=== PATIENT | male | born 1975 | race Hispanic/Latino ===

== ENCOUNTER 2024-05-26 06:48 | Day surgery (SDC) | payer OTHER, MEDICARE ==
[2024-05-22 12:20] VITALS: BP 94/64; PULSE 89; RESP 18; TEMP 97.5
[2024-05-22 12:23] LABS: BASOPHILS # (AUTO) 0.14 K/uL (0.00-0.20); BASOPHILS % (AUTO) 1.4 % (0.0-5.0); EOSINOPHILS # (AUTO) 0.44 K/uL (0.00-0.70); EOSINOPHILS % (AUTO) 4.3 % (0.0-8.0); HEMATOCRIT 44.2 % (42-54); IMMATURE GRANULOCYTE ABSOLUTE 0.04 K/uL (0-1); LYMPHOCYTES % (AUTO) 19.6 % (21.0-51.0); MEAN CORPUSCULAR HEMOGLOBIN 26.5 pg (27.0-33.0); MEAN CORPUSCULAR HGB CONC 31.4 g/dL (32.0-36.0); MEAN CORPUSCULAR VOLUME 84.4 fL (79-99); MONOCYTES # (AUTO) 0.6 K/uL (0.1-1.0); MONOCYTES % (AUTO) 6.1 % (3.0-13.0); NEUTROPHILS % (AUTO) 68.2 % (40.0-77.0); PLATELET COUNT (AUTO) 375 K/uL (130-400); RED BLOOD CELL COUNT(AUTO) 5.24 MIL/uL (4.50-6.20); RED CELL DISTRIBUTION WIDTH 16.2 % (11.0-15.5); WHITE BLOOD COUNT (AUTO) 10.3 K/uL (4.8-10.8)
[2024-05-22 12:33] LABS: POTASSIUM 3.9 mmol/L (3.5-5.1)
--- NOTE | 2024-05-22 12:42 | EKG ---
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
[~2024-05-26] VITALS: Ht 165.1 cm; Wt 96.3 kg
[2024-05-26 07:00] VITALS: BP 118/71; PULSE 96; RESP 18; TEMP 98.1
[2024-05-26] MEDS: LIDOCAINE HCL 2% VISCOUS 15 ML UDCUP PO ONE (07:30)
[2024-05-26] MEDS ORDERED: LIDOCAINE HCL 2% VISCOUS 15 ML UDCUP ONE (07:41)
[2024-05-26] MEDS ORDERED: INSU3INS3 SQ (07:55)
[2024-05-26] MEDS ORDERED: METOPROLOL (07:55)
[2024-05-26] MEDS ORDERED: LOSARTAN (07:55)
[2024-05-26] MEDS ORDERED: GABA (07:55)
[2024-05-26] MEDS ORDERED: FUROSEMIDE (07:55)
[2024-05-26] MEDS ORDERED: ASPI-1005 PO (07:55)
--- NOTE | 2024-05-26 09:30 | NUR ---
TIME OUT PERFORMED WITH DR. PINEDO MYSELF AND PT.
--- NOTE | 2024-05-26 09:43 | NUR ---
VIVIANA STARTED AT THIS TIME BARI VILLANUEVA.
--- NOTE | 2024-05-26 09:56 | NUR ---
BUBBLE STUDY PERFORMED VSS NAD
--- NOTE | 2024-05-26 09:57 | NUR ---
VIVIANA PERFORMED PT TOLERATED WELL NAD VSS.
[2024-05-26 09:58] VITALS: BP 110/67; PULSE 90; RESP 14; TEMP 97.4
--- NOTE | 2024-05-26 09:58 | NUR ---
PT AWAKE SLEEPING SPEAKING WITH STAFF BARI VILLANUEVA.
[2024-05-26 10:10] VITALS: BP 134/87; PULSE 81; RESP 14
[2024-05-26] MEDS: MIDAZOLAM HCL 1 MG/ML 2ML VIAL IVP ONE (10:10)
[2024-05-26] MEDS: 0.9%NACL 1000ML 1,000 ML IV SCH (10:10)
[2024-05-26] MEDS: FENTanyl CITRate PF 50 MCG/1 ML 2ML VIAL IVP ONE (10:12)
[2024-05-26 10:25] VITALS: BP 131/85; PULSE 83; RESP 14
[2024-05-26 10:40] VITALS: BP 100/63; PULSE 79; RESP 15
[2024-05-26 10:55] VITALS: BP 122/72; PULSE 79; RESP 15
--- NOTE | 2024-05-26 18:14 | HMCSR ---
APPROVED REPORT EXAM: Transesophageal echocardiogram with color flow Doppler. INDICATION ICD: I35.0 Non-rheumatic aortic valve stenosis PROCEDURE After obtaining informed consent, patient underwent transesophageal echo in the day pt department 15 mL 2% Viscous Lidocaine was given as a topical anesthetic prior to the administration of the consc ious sedation. Type of Sedation: Please refer to medication administration record. Sedation was administered by Please refer to medication administration record.. Sedation was achieved with Please refer to medication administration record. intravenously. Transesophageal probe was inserted and advanced into esophagus without difficulty by Terry Wray MD . Echo enhancement indication: R/O Septal defect. Echo enhancement agent administered: Agitated Saline. VIVIANA was performed and images were obtained, probe was removed without complications. Throughout the procedure, the blood pressure, pulse oximetry, cardiac rhythm, and rate were monitored . The patient tolerated the procedure without adverse effects. Recovery from conscious sedation was une ventful and vital signs were stable. Left Ventricle Left ventricular cavity size is normal. Spontaneous contrast seen left ventricle. There is global hyp okinesis of the left ventricle. LVEF is 20-25%. No left ventricle thrombus noted on this study. Right Ventricle The right ventricle is normal size. Right ventricular systolic function is mildly reduced. Atria The left atrium is mildly dilated.dilated.Spontaneous contrast seen in left atrium. No left atrial ap pendage thrombus noted. Negative bubble study. No evidence of PFO by agitated saline. The right atriu m size is normal. Aortic Valve Aortic valve is trileaflet. Left coronary cusp leaflet is thickened with limited excursion. Mild aort ic regurgitation is present. No aortic valvular vegetation. There is moderate to severe aortic stenos is may be underestimated due to low flow gradient. AoV area by planimetry is 1.0cm. AoV mean gradien t 20mmHg. Mitral Valve The mitral valve is mildly thickened. Mitral regurgitation is moderate No mitral valve vegetation. Th ere is no mitral valve stenosis. Tricuspid Valve The tricuspid valve is normal in structure and function. There is mild tricuspid valve regurgitation noted. No tricuspid valve vegetation. Pulmonic Valve The pulmonary valve is normal in structure and function. No pulmonic valve vegetation. Great Vessels The aortic root is normal in size. Pericardium No pericardial effusion. Conclusion Left ventricle is normal in size with a severely reduced systolic function. Estimated LVEF of 20-25% by visual estimate with globl hypokinesis. Right ventricle appears normal in size and systolic function. Left atrium appears mildly dilated. Normal Bubble study. No intracardiac thrombi or vegetations noted. Aortic valve non coronary cusp is hightly calcified with restricted leaflet opening and moderate aort ic stenosis (TEE 1cm and mean gradient 20mmHg). Consider low flow-low gradient aortic stenosis. Moderate mitral regurgitation. No pericardial effusion.
== END 2024-05-26 11:15 | disposition home or self-care (01) ==
LOC: DAH 06:48 → EDSTATUS 11:00 → DAH 11:15
PROVIDERS: ATTEND Student in an Organized Health Care Education/Training Program
DX: I08.3 Combined rheumatic disorders of mitral, aortic and tricuspid valves (principal); I11.0 Hypertensive heart disease with heart failure; I50.22 Chronic systolic (congestive) heart failure; E78.5 Hyperlipidemia, unspecified; E11.9 Type 2 diabetes mellitus without complications; F17.200 Nicotine dependence, unspecified, uncomplicated; E66.9 Obesity, unspecified; Z98.890 Other specified postprocedural states; Z83.3 Family history of diabetes mellitus; Z82.49 Family history of ischemic heart disease and other diseases of the circulatory system; Z68.35 Body mass index [BMI] 35.0-35.9, adult; Z79.899 Other long term (current) drug therapy; Z79.82 Long term (current) use of aspirin
CPT/HCPCS: 80048; 85025; 36415; 93005; 82948; 93325; A4223 ×3; J3010; J7030; J2250 ×2; C8925; A4215; A6251; A4222; A4221; A4663; A4216; A6206; A6258; A4606; 93312; 99152; G0500

== ENCOUNTER 2024-06-20 06:23 | Day surgery (SDC) | payer OTHER, MEDICARE ==
[2024-06-18 14:17] VITALS: BP 117/65; PULSE 84; RESP 18; TEMP 97.9
--- NOTE | 2024-06-18 14:37 | EKG ---
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
[2024-06-18 14:48] LABS: BASOPHILS # (AUTO) 0.11 K/uL (0.00-0.20); BASOPHILS % (AUTO) 0.8 % (0.0-5.0); EOSINOPHILS % (AUTO) 3.8 % (0.0-8.0); HEMATOCRIT 47.9 % (42-54); IMMATURE GRANULOCYTE ABSOLUTE 0.06 K/uL (0-1); LYMPHOCYTES # (AUTO) 2.3 K/uL (1.0-4.8); MEAN CORPUSCULAR HEMOGLOBIN 26.3 pg (27.0-33.0); MEAN CORPUSCULAR HGB CONC 32.2 g/dL (32.0-36.0); MEAN CORPUSCULAR VOLUME 81.9 fL (79-99); MONOCYTES # (AUTO) 0.9 K/uL (0.1-1.0); MONOCYTES % (AUTO) 7.1 % (3.0-13.0); NEUTROPHILS # (AUTO) 9.4 K/uL (1.8-7.7); NEUTROPHILS % (AUTO) 70.8 % (40.0-77.0); PLATELET COUNT (AUTO) 292 K/uL (130-400); RED BLOOD CELL COUNT(AUTO) 5.85 MIL/uL (4.50-6.20); RED CELL DISTRIBUTION WIDTH 18.3 % (11.0-15.5); WHITE BLOOD COUNT (AUTO) 13.3 K/uL (4.8-10.8)
[2024-06-18 14:59] LABS: INR 0.99 (0.85-1.15); PROTHROMBIN TIME 10.5 SEC (9.6-11.6)
[2024-06-18 15:01] LABS: PARTIAL THROMBOPLASTIN TIME 28.8 SEC (26.3-35.5)
[2024-06-18 15:18] LABS: POTASSIUM 4.4 mmol/L (3.5-5.1)
[2024-06-18 15:22] LABS: B-TYPE NATRIURETIC PEPTIDE 240 pg/mL (0-100)
--- NOTE | 2024-06-18 15:31 | HMCIMG ---
CHEST 1VW REASON: Preop COMPARISON: None. FINDINGS: Lungs are clear. Heart size is normal. There is no pulmonary vascular congestion. Mediastinum and bony thorax appear unremarkable. IMPRESSION: 1. Normal chest x-ray.
--- NOTE | 2024-06-19 11:44 | NUR ---
RE: LABS REPORTED CBC RESULTS TO DR Laure PINEDO. NO NEW ORDERS RECEIVED. (PT ASYMPTOMATIC, NOT TAKING STEROIDS, CXR NORMAL)
[~2024-06-20] VITALS: Ht 165.1 cm; Wt 93.5 kg
[2024-06-20] VITALS (7 sets, daily range): BP systolic 104–125; BP diastolic 61–73; PULSE 74–91; RESP 11–19; TEMP 97.3
[~2024-06-20 06:23] MED LIST: ASPI-1443 PO; EMPA10TA PO; FURO40TA5 PO; GABA-529 PO; INSU3INS3 SQ; LOSA25TA41 PO; METO-408 PO; ROSU40TA88 PO; SACU1TAB PO; SPIR25TA6 PO
[2024-06-20] MEDS: 0.9%NACL 1000ML 1,000 ML IV SCH (08:01)
[2024-06-20] MEDS ORDERED: VERAPAMIL HCL 2.5 MG/ML VIAL ONE (08:35)
[2024-06-20] MEDS ORDERED: HEParin-NS 1,000 UNIT/500 ML 1,000 ML IV ONE (08:35)
[2024-06-20] MEDS ORDERED: LIDOCAINE HCL 400MG/20ML VIAL ONE (08:35)
[2024-06-20] MEDS ORDERED: HEParin 10,000 UNIT/10ML (1,000 UNIT/ML) VIAL ONE (08:35)
[2024-06-20] MEDS ORDERED: NITROGLYCERIN 50MG VIAL ONE (08:36)
[2024-06-20] MEDS ORDERED: IOHEXOL 350 MG/ML 100ML INFUS..BTL IV ONE (08:37)
[2024-06-20] MEDS ORDERED: FENTanyl CITRate PF 50 MCG/1 ML 2ML VIAL ONE (08:54)
[2024-06-20] MEDS ORDERED: MIDAZOLAM HCL 1 MG/ML 2ML VIAL ONE ×2 (08:55→09:34)
[2024-06-20] MEDS ORDERED: INSULIN humuLIN R 100 UNIT/ML 3ML SQ ONE (09:30)
--- NOTE | 2024-06-20 10:29 | PRN ---
PROCEDURE REPORT DATE OF PROCEDURE: Jun 20, 2024 CASINO SURVEILLANCE OFFICER: [ Riya Wray MD] PROCEDURE PERFORMED: Conscious sedation Ultrasound guided right radial artery access Ultrasound guided right brachial vein access Selective left coronary artery angiogram Selective right coronary artery angiogram Left heart catheterization Right heart catheterization TR band 13 daniela over right radial artery INDICATION: HFrEF Aortic stenosis DESCRIPTION OF PROCEDURE: RHC: In a sterile fashion, a wire was advanced through the existing right cephalic vein and sheath was exchanged over the wire. A 5F swan catheter was advanced to the SVC and SaO2 was obtained, then the swan with balloon inflated was advanced to the wedge position and pressures obtained. The catheter was withdrawn into the right PA and oxygen saturations were obtained and pressures. Simultaneously, the arterial oxygen saturation was obtained in the right radial artery. Then, the catheter was withdrawn into the right ventricle and pressures were obtained. The swan was then removed. RHC: mm Hg Mean RA: 6 RV: 45/9 PA: 45/18 (33) PCWP: 16/17 (13) CO/CI: 4.39/2.19 TPmmHg PVR: 2.27 SVC O2 sat: 67.5 PA O2 sat: 65% Arterial O2 sat: 91.2% on room air CORONARY ANGIOGRAM: A 6 Greek arterial sheath was inserted in the right radial artery using ultrasound guidance with first pass wall puncture. The arterial sheath was aspirated and flushed. A 6 Greek JL 3.5 was then advanced to the ascending aorta over an exchange length J-tip guidewire, was aspirated and flushed, and was used for selective coronary angiograms in multiple obliquities. A JR-4 was advanced in a similar fashion to the ascending aorta over the J-tipped guidewire and was used for selective right coronary angiograms in multiple oblique views with findings as outlined below. The JR-4 catheter advanced into the LV and pressures were obtained with a pull-back across the aortic valve. A TR band was placed over right radial artery. FLUOROSCOPY TIME: 5.4 min LEFT HEART HEMODYNAMICS: LVEDP 23 mm Hg and no gradient Ao CORONARY ANGIOGRAM: LEFT MAIN: Patent and 0% stenosis. Gives rise to LCx and LAD. LEFT ANTERIOR DESCENDING: Large vessel giving rise to two Diagonal branches. There is 70-80% focal mid LAD stenosis just after the second diagonal artery with TATE 2 flow. Large and patent diagonals RAMUS INTERMEDIUS: Small (aprox 1.5mm) with 80-90% ostial stenosis LEFT CIRCUMFLEX: Large, and gives rise to two OM branches. Severe 90-95% mid stenosis. OM1 is small (1mm) and OM2 has 60-70% prox-mid stenosis. RIGHT CORONARY ARTERY: Large, Codominant vessel giving rise to PDA . 0% stenosis. HEMOSTASIS: TR band 12 daniela over right radial artery INTERVENTIONS: None. COMPLICATIONS: None FINDINGS: Normal coronary anatomy and severe 2v obstructive CAD. HFrEF (LVEF 25%) and compensated on exam with normal intracardiac filling pressures. Mild-moderate aortic stenosis. ESTIMATED BLOOD LOSS: 5 cc RECOMMENDATIONS/INSTRUCTIONS: Aggressive risk factor modification. Refer to CV surgery for consideration of CABG versus high-risk PCI CONTRAST DELIVERED TO PATIENT (mL): 60cc RIYA Hebert MD, MD Jun 20, 2024 10:29
[2024-06-20] MEDS ORDERED: GLUCAGON 1MG KIT 1 MG ML IM PRN (10:30)
[2024-06-20] MEDS ORDERED: DEXTROSE 50%-WATER 50 ML DISP.SYRIN IV PRN (10:30)
--- NOTE | 2024-06-20 11:45 | NUR ---
VASC BAND: ATTEMPTED TO REMOVE 2 ML AIR AND ONLY ABLE TO REMOVE 1 ML AIR. VASC BAND WITH ONLY 5 ML AIR.
--- NOTE | 2024-06-20 11:50 | NUR ---
VASC BAND: VASC BAND REMOVED WITH NO ACTIVE BLEEDING PRESENT. CLEANSED AREA WITH CHLORAPREP FOLLOWED BY APPLYING STERILE 2X2 GAUZE THAN 2X2 TEGADERM. NO REDNESS/SWELLING NOTED TO SURROUNDING AREA RT WRIST.
== END 2024-06-20 12:15 | disposition home or self-care (01) ==
LOC: DAH 06:23 → EDSTATUS 09:00 → DAH 12:15
PROVIDERS: ATTEND Student in an Organized Health Care Education/Training Program
DX: I35.0 Nonrheumatic aortic (valve) stenosis (principal); I25.118 Atherosclerotic heart disease of native coronary artery with other forms of angina pectoris; I11.0 Hypertensive heart disease with heart failure; I50.22 Chronic systolic (congestive) heart failure; E78.5 Hyperlipidemia, unspecified; E11.9 Type 2 diabetes mellitus without complications; I25.2 Old myocardial infarction; Z79.4 Long term (current) use of insulin; Z79.82 Long term (current) use of aspirin; Z79.899 Other long term (current) drug therapy
CPT/HCPCS: 80048; 83880; 85025; 85610; 85730; 36415; 71045; 93005; 93460; 82948 ×2; C1894 ×2; C1769; J3010; J3490 ×3; J7030; J1644 ×2; J2250 ×2; Q9967; A4215; A4222; A4663; A4216; A4606; Q9965; A4223 ×3; A4221; 99156; 99157; A4649